=== PATIENT | male | born 1935 | race Two or more races ===

== ENCOUNTER 2019-03-11 07:42 | Outpatient (CLI) | payer OTHER ==
[~2019-03-11 07:42] MED LIST: AVAPRO75 MG PO; CARTIA XT120 MG; CARTIA XT120 MG PO; CEPHALEXIN500 M1 PO; FUROSEMIDE20 MG PO; GLIMEPIRIDE4 MG; GLIMEPIRIDE4 MG PO; IRBESARTAN75 MG; LANTUS100 U/ML SQ; NEURONTIN300 MG PO; XARELTO20 MG
== END 2019-03-11 07:43 | disposition home or self-care (01) ==
LOC: RAD 07:42
DX: M51.36 Other intervertebral disc degeneration, lumbar region (principal); M25.551 Pain in right hip

== ENCOUNTER 2019-03-21 10:15 | Outpatient (CLI) | payer OTHER | END 2019-03-21 10:21 | disposition home or self-care (01) | LOC: RAD 10:15 | DX: M62.830 Muscle spasm of back (principal); R06.02 Shortness of breath ==